=== PATIENT | male | born 1985 ===

== ENCOUNTER 2018-03-11 23:52 | Emergency (ER) | payer MEDICAID ==
[~2018-03-11] VITALS: Ht 180.3 cm; Wt 81.7 kg
[~2018-03-11 23:52] MED LIST: ALBU90OI INH; ALBU90OI61 INH; AMOCLA500; AMOX500 PO; Amoxicillin500 M1 PO; Amoxicillin500 MG PO; BRINTELLIX10 MG; CIPR500 PO; CLIN300 PO; CODGUAEL PO; CYCL10 PO; DOXY100 PO; HYDACE5 PO; HYDCOR2.5C PR; HYDGUAL120 PO; ITCH RELIEF15 GM TP; Mucinex600 MG PO; NAPR550 PO; OXYM.05NI; PENVK500 PO; PERIDEX15 ML MM; PRED10 PO; Pepcid40 MG PO; Prednisone20 MG PO; RXHYDGUAS PO; RXNAPNA550 PO; TOBR.3OPSO OP
[2018-03-12] MEDS ORDERED: Cleocin HCl300 MG PO (00:33)
[2018-03-12] MEDS ORDERED: Ultram50 MG PO (00:33)
== END 2018-03-12 01:29 | disposition home or self-care (01) ==
LOC: ER 23:52
DX: L03.211 Cellulitis of face (principal); K02.9 Dental caries, unspecified; J45.909 Unspecified asthma, uncomplicated; K21.9 Gastro-esophageal reflux disease without esophagitis; F17.200 Nicotine dependence, unspecified, uncomplicated; Z88.5 Allergy status to narcotic agent; Z79.899 Other long term (current) drug therapy
CPT/HCPCS: 99283; J1100

== ENCOUNTER 2018-03-27 20:39 | Emergency (ER) | payer SELFPAY ==
[~2018-03-27] VITALS: Ht 177.8 cm; Wt 119.8 kg
[~2018-03-27 20:39] MED LIST changes: +Cleocin HCl300 MG PO; +Ultram50 MG PO
[2018-03-27 21:17] LABS: BASOPHILS ABSOLUTE AUTO 0.06 K/mm3 (0.00-0.23); BASOPHILS PERCENT AUTO 0 % (0-2); EOSINOPHILS ABSOLUTE AUTO 0.24 K/mm3 (0.00-0.68); EOSINOPHILS PERCENT AUTO 2 % (0-6); Hematocrit 48.6 % (37.0-53.0); Hemoglobin 15.7 g/dL (13.5-17.5); IMMATURE GRAN ABSOLUTE AUTO 0.05 K/mm3 (0.00-0.10); IMMATURE GRAN PERCENT AUTO 0 % (0-1); LYMPHOCYTES ABSOLUTE AUTO 5.31 K/mm3 (0.84-5.20); LYMPHOCYTES PERCENT AUTO 39 % (21-46); MONOCYTES PERCENT AUTO 8 % (4-13); Mean Corpuscular HGB 27.9 pg (26.0-34.0); Mean Corpuscular HGB Conc 32.3 g/dL (31.5-36.5); Mean Corpuscular Volume 87 fL (80-100); Mean Platelet Volume 10.6 fL (9.1-12.4); NEUTROPHILS ABSOLUTE AUTO 7.03 K/mm3 (1.96-9.15); NEUTROPHILS PERCENT AUTO 51 % (41-73); Platelet Count 355 K/mm3 (150-400); RDW Coefficient Variation 13.7 % (11.7-14.2); Red Blood Cell Count 5.62 M/mm3 (4.30-5.90); White Blood Cell Count 13.79 K/mm3 (4.00-11.30)
[2018-03-27 21:35] LABS: Alanine Aminotransfer (ALT/SGP 41 U/L (12-78); Albumin, Blood 3.8 g/dL (3.4-5.0); Albumin/Globulin Ratio 1.1 (0.8-1.8); Alk Phos 78 U/L (50-136); Anion Gap 12 mmol/L (6-16); Aspartate Aminotrans (AST/SGOT 21 U/L (12-37); Bilirubin, Total 0.2 mg/dL (0.1-1.0); Blood Urea Nitrogen 17 mg/dL (8-24); Bun/Creatinine Ratio 21.9 (12.0-20.0); CO2, Blood 26 mmol/L (21-32); Calcium, Blood 8.5 mg/dL (8.5-10.1); Chloride, Blood 103 mmol/L (98-108); Creatinine, Blood 0.78 mg/dL (0.60-1.20); Ethanol (Alcohol), Blood, Med <3 mg/dL; Globulin, Blood 3.6 g/dL (2.2-4.0); Glomerular Filtration Rate >60 (60-); Glucose, Blood 112 mg/dL (70-99); Potassium, Blood 3.7 mmol/L (3.5-5.5); Sodium, Blood 141 mmol/L (136-145); Total Protein, Blood 7.4 g/dL (6.4-8.2)
[2018-03-27] MEDS ORDERED: Ultram50 MG PO (23:05)
== END 2018-03-27 23:19 | disposition home or self-care (01) ==
LOC: ER 20:39
PROVIDERS: Emergency Medicine
DX: S06.0X9A Concussion with loss of consciousness of unspecified duration, initial encounter (principal); S00.83XA Contusion of other part of head, initial encounter; M54.6 Pain in thoracic spine; M54.2 Cervicalgia; V49.9XXA Car occupant (driver) (passenger) injured in unspecified traffic accident, initial encounter; J45.909 Unspecified asthma, uncomplicated; K21.9 Gastro-esophageal reflux disease without esophagitis; F17.200 Nicotine dependence, unspecified, uncomplicated; Z88.5 Allergy status to narcotic agent
CPT/HCPCS: 36415; 70450; 72125; 80053; 85025; 96374; 96375; 99285-25; G0480; J1170; J2060; J2405; J3010

== ENCOUNTER 2018-10-11 18:09 | Emergency (ER) | payer OTHER ==
[~2018-10-11] VITALS: Ht 175.3 cm; Wt 109.8 kg
[2018-10-11] MEDS ORDERED: Prednisone20 MG PO (19:05)
[2018-10-11] MEDS ORDERED: ZYRTEC10 M3 PO (19:05)
== END 2018-10-11 19:18 | disposition home or self-care (01) ==
LOC: ER 18:09
DX: L23.7 Allergic contact dermatitis due to plants, except food (principal); Z88.5 Allergy status to narcotic agent; F17.200 Nicotine dependence, unspecified, uncomplicated
CPT/HCPCS: 99283; J1100; Q0163

== ENCOUNTER 2019-05-18 16:25 | Emergency (ER) | payer OTHER ==
[~2019-05-18] VITALS: Ht 175.3 cm; Wt 90.7 kg
[~2019-05-18 16:25] MED LIST changes: +ZYRTEC10 M3 PO
[2019-05-18] MEDS ORDERED: PENVK500 PO (17:17)
== END 2019-05-18 17:26 | disposition home or self-care (01) ==
LOC: ER 16:25
DX: K04.7 Periapical abscess without sinus (principal); K02.9 Dental caries, unspecified; J45.909 Unspecified asthma, uncomplicated; K21.9 Gastro-esophageal reflux disease without esophagitis; F17.210 Nicotine dependence, cigarettes, uncomplicated; Z88.5 Allergy status to narcotic agent
CPT/HCPCS: 99283

== ENCOUNTER 2020-02-25 07:17 | Emergency (ER) | payer OTHER ==
[~2020-02-25] VITALS: Ht 175.3 cm; Wt 127.0 kg
[~2020-02-25 07:17] MED LIST changes: +Bactrim Ds Tab1 EACH PO; +HIBICLENS120 ML EXT; +IBU600 M1 PO
[2020-02-25] MEDS ORDERED: Amoxicillin500 MG PO (08:39)
== END 2020-02-25 09:46 | disposition home or self-care (01) ==
LOC: ER 07:17
DX: K04.7 Periapical abscess without sinus (principal); F17.210 Nicotine dependence, cigarettes, uncomplicated; Z88.5 Allergy status to narcotic agent
CPT/HCPCS: 99282

== ENCOUNTER 2021-01-19 13:11 | Emergency (ER) | payer OTHER ==
[~2021-01-19] VITALS: Ht 172.7 cm; Wt 136.1 kg
[2021-01-19] MEDS ORDERED: CYCL10 PO (13:47)
== END 2021-01-19 13:56 | disposition home or self-care (01) ==
LOC: ER 13:11
DX: S16.1XXA Strain of muscle, fascia and tendon at neck level, initial encounter (principal); J45.909 Unspecified asthma, uncomplicated; F17.210 Nicotine dependence, cigarettes, uncomplicated; Z88.6 Allergy status to analgesic agent; X58.XXXA Exposure to other specified factors, initial encounter
CPT/HCPCS: 99283; A9270

== ENCOUNTER 2022-10-12 11:13 | Emergency (ER) | payer OTHER ==
[~2022-10-12] VITALS: Ht 175.3 cm; Wt 117.9 kg
[2022-10-12 11:15] VITALS: BP 144/96
[2022-10-12] MEDS ORDERED: NAPROXEN250 M1 PO (12:11)
== END 2022-10-12 12:24 | disposition home or self-care (01) ==
LOC: ER 11:13
DX: M25.512 Pain in left shoulder (principal); J45.909 Unspecified asthma, uncomplicated; F17.210 Nicotine dependence, cigarettes, uncomplicated; Z88.5 Allergy status to narcotic agent; W18.30XA Fall on same level, unspecified, initial encounter
CPT/HCPCS: 73030; 96372; 99283-25; J1885

== ENCOUNTER 2023-02-23 11:13 | Emergency (ER) | payer OTHER ==
[~2023-02-23] VITALS: Ht 172.7 cm; Wt 126.1 kg
[~2023-02-23 11:13] MED LIST changes: +NAPROXEN250 M1 PO
[2023-02-23 11:55] LABS: BASOPHILS ABSOLUTE AUTO 0.04 K/mm3 (0.00-0.23); BASOPHILS PERCENT AUTO 1 % (0-2); EOSINOPHILS ABSOLUTE AUTO 0.12 K/mm3 (0.00-0.68); EOSINOPHILS PERCENT AUTO 1 % (0-6); Hematocrit 45.4 % (37.0-53.0); Hemoglobin 15.3 g/dL (13.5-17.5); IMMATURE GRAN ABSOLUTE AUTO 0.03 K/mm3 (0.00-0.10); IMMATURE GRAN PERCENT AUTO 0 % (0-1); LYMPHOCYTES ABSOLUTE AUTO 3.06 K/mm3 (0.84-5.20); LYMPHOCYTES PERCENT AUTO 37 % (21-46); MONOCYTES ABSOLUTE AUTO 0.55 K/mm3 (0.16-1.47); MONOCYTES PERCENT AUTO 7 % (4-13); Mean Corpuscular HGB 28.4 pg (26.0-34.0); Mean Corpuscular HGB Conc 33.7 g/dL (31.5-36.5); Mean Corpuscular Volume 84 fL (80-100); NEUTROPHILS ABSOLUTE AUTO 4.55 K/mm3 (1.96-9.15); NEUTROPHILS PERCENT AUTO 55 % (41-73); RDW Standard Deviation 39.8 fL (35.1-46.3); Red Blood Cell Count 5.39 M/mm3 (4.30-5.90); White Blood Cell Count 8.35 K/mm3 (4.00-11.30)
[2023-02-23 12:02] LABS: Mean Platelet Volume 12.1 fL (9.1-12.4); Platelet Count 286 K/mm3 (150-400)
[2023-02-23 12:21] LABS: Albumin, Blood 3.8 g/dL (3.4-5.0); Bilirubin, Total 0.4 mg/dL (0.1-1.0); Bun/Creatinine Ratio 21.6 (12.0-20.0); Calcium, Blood 8.9 mg/dL (8.5-10.1); Creatinine, Blood 0.79 mg/dL (0.60-1.20); Globulin, Blood 3.8 g/dL (2.2-4.0); Potassium, Blood 5.2 mmol/L (3.5-5.5); Total Protein, Blood 7.6 g/dL (6.4-8.2)
[2023-02-23 14:07] LABS: Source, Urine Clean Catch
[2023-02-23 14:16] LABS: Appearance, Urine Clear (Clear); Bilirubin, Urine Neg (Neg); Blood, Urine Neg (Neg); Color, Urine Yellow (P-Yellow); Glucose Qualitative, Urine Neg (Neg); Ketones, Urine Neg (Neg); Leukocyte Esterase, Urine Neg (Neg); Nitrite, Urine Neg (Neg); Protein, Urine Neg (Neg); Specific Gravity, Urine 1.015 (1.003-1.022); Urobilinogen, Urine NORM (Normal)
[2023-02-23 15:00] VITALS: BP 120/81
[2023-02-23] MEDS ORDERED: NAPR500 PO (15:04)
[2023-02-23] MEDS ORDERED: TIZA4 PO (15:04)
[2023-02-23] MEDS ORDERED: DIAZ2 PO (15:26)
== END 2023-02-23 15:43 | disposition home or self-care (01) ==
LOC: ER 11:13
PROVIDERS: Physician Assistant
DX: M54.6 Pain in thoracic spine (principal); K21.9 Gastro-esophageal reflux disease without esophagitis; J45.909 Unspecified asthma, uncomplicated; F17.210 Nicotine dependence, cigarettes, uncomplicated; Z79.1 Long term (current) use of non-steroidal anti-inflammatories (NSAID); Z88.5 Allergy status to narcotic agent
CPT/HCPCS: 36415; 71046; 80053; 81003; 83690; 84484; 85025; 93005; 93010; 96372; 99284-25; A9270; J1885

== ENCOUNTER 2024-05-28 14:58 | Emergency (ER) | payer OTHER ==
[~2024-05-28] VITALS: Ht 175.3 cm; Wt 142.9 kg
[~2024-05-28 14:58] MED LIST changes: +AMOCLA875 PO; +DIAZ2 PO; +NAPR500 PO; +ONDA4 PO; +Percocet 5-3251 EACH PO; +TIZA4 PO
[2024-05-28 15:37] VITALS: BP 142/89
[2024-05-28] MEDS ORDERED: Lidocaine 4% 1 Patch TOP ONE (15:45)
[2024-05-28] MEDS ORDERED: Acetaminophen 500 MG Tab PO ONE (15:45)
[2024-05-28 16:00] LABS: BASOPHILS ABSOLUTE AUTO 0.04 K/mm3 (0.00-0.23); BASOPHILS PERCENT AUTO 1 % (0-2); EOSINOPHILS PERCENT AUTO 1 % (0-6); Hematocrit 43.6 % (37.0-53.0); Hemoglobin 14.6 g/dL (13.5-17.5); IMMATURE GRAN ABSOLUTE AUTO 0.02 K/mm3 (0.00-0.10); IMMATURE GRAN PERCENT AUTO 0 % (0-1); LYMPHOCYTES ABSOLUTE AUTO 3.02 K/mm3 (0.84-5.20); LYMPHOCYTES PERCENT AUTO 36 % (21-46); MONOCYTES ABSOLUTE AUTO 0.66 K/mm3 (0.16-1.47); MONOCYTES PERCENT AUTO 8 % (4-13); Mean Corpuscular HGB 28.7 pg (26.0-34.0); Mean Corpuscular HGB Conc 33.5 g/dL (31.5-36.5); Mean Corpuscular Volume 86 fL (80-100); Mean Platelet Volume 10.7 fL (9.1-12.4); NEUTROPHILS ABSOLUTE AUTO 4.64 K/mm3 (1.96-9.15); NEUTROPHILS PERCENT AUTO 55 % (41-73); Platelet Count 259 K/mm3 (150-400); RDW Coefficient Variation 13.7 % (11.7-14.2); RDW Standard Deviation 42.9 fL (35.1-46.3); Red Blood Cell Count 5.09 M/mm3 (4.30-5.90); White Blood Cell Count 8.48 K/mm3 (4.00-11.30)
[2024-05-28 16:16] LABS: Albumin, Blood 3.6 g/dL (3.4-5.0); Albumin/Globulin Ratio 1.1 (0.8-1.8); Bilirubin, Total 0.2 mg/dL (0.1-1.0); Bun/Creatinine Ratio 25.3 (12.0-20.0); Calcium, Blood 8.5 mg/dL (8.5-10.1); Creatinine, Blood 0.67 mg/dL (0.60-1.20); Globulin, Blood 3.4 g/dL (2.2-4.0); Potassium, Blood 3.8 mmol/L (3.5-5.5)
[2024-05-28 18:06] LABS: Influenza A, PCR NEGATIVE (NEGATIVE); Influenza B, PCR NEGATIVE (NEGATIVE); Resp Syncytial Virus, PCR NEGATIVE (NEGATIVE); SARS-Cov-2 (COVID-19) PCR, MMC NEGATIVE (NEGATIVE)
[2024-05-28] MEDS ORDERED: LIDO700A20 TOP (18:20)
== END 2024-05-28 18:35 | disposition home or self-care (01) ==
LOC: ER 14:58
PROVIDERS: Student in an Organized Health Care Education/Training Program
DX: R07.9 Chest pain, unspecified (principal); Z88.5 Allergy status to narcotic agent; Z79.2 Long term (current) use of antibiotics; Z79.899 Other long term (current) drug therapy; J45.909 Unspecified asthma, uncomplicated; F17.210 Nicotine dependence, cigarettes, uncomplicated
CPT/HCPCS: 0241U; 71046; 80053; 83690; 84484; 85025; 93005; 93010; 99285-25; A9270

== ENCOUNTER 2024-06-15 07:48 | Emergency (ER) | payer OTHER ==
[~2024-06-15] VITALS: Ht 175.3 cm; Wt 140.2 kg
[~2024-06-15 07:48] MED LIST changes: +LIDO700A20 TOP
[2024-06-15] MEDS ORDERED: NS 1,000 ML IV SCH (08:25)
[2024-06-15] MEDS ORDERED: Ketorolac Tromethamine 15mg Vial IV ONE (08:25)
[2024-06-15] MEDS ORDERED: Ondansetron HCl 2 MG / ML 2ML Vial IV ONE (08:25)
[2024-06-15 08:33] LABS: BASOPHILS ABSOLUTE AUTO 0.03 K/mm3 (0.00-0.23); BASOPHILS PERCENT AUTO 0 % (0-2); EOSINOPHILS ABSOLUTE AUTO 0.13 K/mm3 (0.00-0.68); EOSINOPHILS PERCENT AUTO 1 % (0-6); Hematocrit 43.9 % (37.0-53.0); Hemoglobin 15.3 g/dL (13.5-17.5); IMMATURE GRAN ABSOLUTE AUTO 0.03 K/mm3 (0.00-0.10); IMMATURE GRAN PERCENT AUTO 0 % (0-1); LYMPHOCYTES ABSOLUTE AUTO 2.16 K/mm3 (0.84-5.20); LYMPHOCYTES PERCENT AUTO 23 % (21-46); MONOCYTES ABSOLUTE AUTO 0.63 K/mm3 (0.16-1.47); MONOCYTES PERCENT AUTO 7 % (4-13); Mean Corpuscular HGB 29.1 pg (26.0-34.0); Mean Corpuscular HGB Conc 34.9 g/dL (31.5-36.5); Mean Corpuscular Volume 84 fL (80-100); NEUTROPHILS ABSOLUTE AUTO 6.61 K/mm3 (1.96-9.15); NEUTROPHILS PERCENT AUTO 69 % (41-73); Platelet Count 260 K/mm3 (150-400); RDW Coefficient Variation 13.5 % (11.7-14.2); RDW Standard Deviation 41.1 fL (35.1-46.3); Red Blood Cell Count 5.25 M/mm3 (4.30-5.90); White Blood Cell Count 9.59 K/mm3 (4.00-11.30)
[2024-06-15 08:52] LABS: Albumin, Blood 3.4 g/dL (3.4-5.0); Bilirubin, Total 0.6 mg/dL (0.1-1.0); Bun/Creatinine Ratio 23.4 (12.0-20.0); Calcium, Blood 8.3 mg/dL (8.5-10.1); Creatinine, Blood 0.64 mg/dL (0.60-1.20); Globulin, Blood 3.5 g/dL (2.2-4.0); Total Protein, Blood 6.9 g/dL (6.4-8.2)
[2024-06-15 09:14] LABS: Source, Urine Clean Catch
[2024-06-15] MEDS ORDERED: MetroNIDAZOLE 500 MG Tab PO ONE (09:20)
[2024-06-15 09:21] LABS: Appearance, Urine Clear (Clear); Bilirubin, Urine Neg (Neg); Blood, Urine Neg (Neg); Color, Urine Yellow (P-Yellow); Glucose Qualitative, Urine Neg (Neg); Ketones, Urine Neg (Neg); Leukocyte Esterase, Urine 1+ (Neg); Nitrite, Urine Neg (Neg); Protein, Urine Neg (Neg); Urobilinogen, Urine NORM (Normal); pH, Urine 6.5 (5.0-8.0)
[2024-06-15] MEDS ORDERED: Ciprofloxacin 500 MG Tab PO ONE (09:25)
[2024-06-15 09:46] LABS: Bacteria Few /hpf; Red Blood Cells, Urine Not Seen /hpf (0-2); Squamous Epithelial Cells Not Seen /hpf (Few)
[2024-06-15 09:59] VITALS: BP 133/92
[2024-06-15] MEDS ORDERED: OxyCODONE 5 mg/Acetamin 325 mg TABLET PO ONE (10:05)
[2024-06-15] MEDS ORDERED: METR500 PO (10:08)
[2024-06-15] MEDS ORDERED: Percocet 5-3251 EACH PO (10:08)
[2024-06-15] MEDS ORDERED: ONDA4ODT MM (10:08)
[2024-06-15] MEDS ORDERED: CIPR500 PO (10:08)
== END 2024-06-15 10:00 | disposition home or self-care (01) ==
LOC: ER 07:48
PROVIDERS: Student in an Organized Health Care Education/Training Program
DX: K57.32 Diverticulitis of large intestine without perforation or abscess without bleeding (principal); J45.909 Unspecified asthma, uncomplicated; K21.9 Gastro-esophageal reflux disease without esophagitis; F17.200 Nicotine dependence, unspecified, uncomplicated; Z88.5 Allergy status to narcotic agent; Z79.899 Other long term (current) drug therapy
CPT/HCPCS: 74177; 80053; 81001; 83690; 85025; 87086; 96374-59; 96375; 99284-25; A9270; J1885; J2405; J7030; Q9967

== ENCOUNTER 2024-12-16 10:50 | Emergency (ER) | payer OTHER ==
[~2024-12-16] VITALS: Ht 175.3 cm; Wt 138.8 kg
[~2024-12-16 10:50] MED LIST changes: +IBUP800 PO; +METR500 PO; +MIRALAX17 GM PO; +ONDA4ODT MM; +OXAYDO5 M1 PO
[2024-12-16] MEDS ORDERED: Morphine Sulfate 4 MG/1 ML Injection IV ONE (11:40)
[2024-12-16 11:51] LABS: BASOPHILS ABSOLUTE AUTO 0.04 K/mm3 (0.00-0.23); BASOPHILS PERCENT AUTO 0 % (0-2); EOSINOPHILS ABSOLUTE AUTO 0.08 K/mm3 (0.00-0.68); EOSINOPHILS PERCENT AUTO 1 % (0-6); Hematocrit 46.1 % (37.0-53.0); Hemoglobin 15.6 g/dL (13.5-17.5); IMMATURE GRAN ABSOLUTE AUTO 0.02 K/mm3 (0.00-0.10); IMMATURE GRAN PERCENT AUTO 0 % (0-1); LYMPHOCYTES ABSOLUTE AUTO 2.74 K/mm3 (0.84-5.20); LYMPHOCYTES PERCENT AUTO 29 % (21-46); MONOCYTES ABSOLUTE AUTO 0.51 K/mm3 (0.16-1.47); MONOCYTES PERCENT AUTO 6 % (4-13); Mean Corpuscular HGB Conc 33.8 g/dL (31.5-36.5); Mean Corpuscular Volume 86 fL (80-100); NEUTROPHILS ABSOLUTE AUTO 5.92 K/mm3 (1.96-9.15); NEUTROPHILS PERCENT AUTO 64 % (41-73); NRBC ABSOLUTE 0.00 K/mm3 (0.00-0.02); NRBC Auto 0.0 /100 WBC (0.0-0.2); Platelet Count 275 K/mm3 (150-400); RDW Coefficient Variation 13.7 % (11.7-14.2); RDW Standard Deviation 42.9 fL (35.1-46.3)
[2024-12-16 12:31] LABS: Alanine Aminotransfer (ALT/SGP 57.0 U/L (12-78); Albumin, Blood 3.9 g/dL (3.4-5.0); Albumin/Globulin Ratio 1.1 (0.8-1.8); Anion Gap 9.0 mmol/L (3-11); Aspartate Aminotrans (AST/SGOT 33.0 U/L (12-37); Bilirubin, Total 0.5 mg/dL (0.1-1.0); Blood Urea Nitrogen 12.0 mg/dL (8-24); CO2, Blood 28.0 mmol/L (21-32); Calcium, Blood 8.9 mg/dL (8.5-10.1); Chloride, Blood 103.0 mmol/L (98-108); Creatinine, Blood 0.68 mg/dL (0.60-1.20); Globulin, Blood 3.4 g/dL (2.2-4.0); Glucose, Blood 109.0 mg/dL (70-99); Potassium, Blood 4.0 mmol/L (3.5-5.5); Sodium, Blood 136.0 mmol/L (136-145); Total Protein, Blood 7.3 g/dL (6.4-8.2)
[2024-12-16] MEDS ORDERED: HYDROmorphone HCl/Pf 1MG SYR IV ONE ×2 (12:40→14:50)
[2024-12-16 15:00] VITALS: BP 132/82
== END 2024-12-16 16:33 | disposition home or self-care (01) ==
LOC: ER 10:50
PROVIDERS: Student in an Organized Health Care Education/Training Program
DX: D73.5 Infarction of spleen (principal); K21.9 Gastro-esophageal reflux disease without esophagitis; J45.909 Unspecified asthma, uncomplicated; Z79.899 Other long term (current) drug therapy; F17.210 Nicotine dependence, cigarettes, uncomplicated
CPT/HCPCS: 71046; 74174; 80053; 84484; 85025; 93005; 93010; 96374; 96375; 96376; 99284-25; J1171; J2270; Q9967

== ENCOUNTER 2024-12-23 17:37 | Emergency (ER) | payer OTHER ==
[~2024-12-23] VITALS: Ht 175.3 cm; Wt 139.7 kg
[2024-12-23 18:30] LABS: Source, Urine Clean Catch
[2024-12-23 18:34] LABS: Bilirubin, Urine Neg (Neg); Color, Urine Yellow (P-Yellow); Glucose Qualitative, Urine Neg (Neg); Ketones, Urine Neg (Neg); Leukocyte Esterase, Urine Neg (Neg); Protein, Urine 1+ (Neg); Specific Gravity, Urine 1.025 (1.003-1.022); Urobilinogen, Urine NORM (Normal)
[2024-12-23 18:42] LABS: BASOPHILS ABSOLUTE AUTO 0.05 K/mm3 (0.00-0.23); BASOPHILS PERCENT AUTO 1 % (0-2); EOSINOPHILS ABSOLUTE AUTO 0.14 K/mm3 (0.00-0.68); EOSINOPHILS PERCENT AUTO 2 % (0-6); Hematocrit 43.2 % (37.0-53.0); Hemoglobin 14.9 g/dL (13.5-17.5); IMMATURE GRAN ABSOLUTE AUTO 0.07 K/mm3 (0.00-0.10); IMMATURE GRAN PERCENT AUTO 1 % (0-1); LYMPHOCYTES ABSOLUTE AUTO 2.79 K/mm3 (0.84-5.20); LYMPHOCYTES PERCENT AUTO 35 % (21-46); MONOCYTES ABSOLUTE AUTO 0.73 K/mm3 (0.16-1.47); MONOCYTES PERCENT AUTO 9 % (4-13); Mean Corpuscular HGB Conc 34.5 g/dL (31.5-36.5); Mean Corpuscular Volume 84 fL (80-100); NEUTROPHILS ABSOLUTE AUTO 4.24 K/mm3 (1.96-9.15); NEUTROPHILS PERCENT AUTO 53 % (41-73); NRBC ABSOLUTE 0.00 K/mm3 (0.00-0.02); NRBC Auto 0.0 /100 WBC (0.0-0.2); RDW Coefficient Variation 13.5 % (11.7-14.2); RDW Standard Deviation 41.7 fL (35.1-46.3)
[2024-12-23 18:43] LABS: Alanine Aminotransfer (ALT/SGP 49.0 U/L (12-78); Albumin, Blood 3.7 g/dL (3.4-5.0); Albumin/Globulin Ratio 1.2 (0.8-1.8); Anion Gap 8.0 mmol/L (3-11); Aspartate Aminotrans (AST/SGOT 28.0 U/L (12-37); Bilirubin, Total 0.3 mg/dL (0.1-1.0); Blood Urea Nitrogen 16.0 mg/dL (8-24); CO2, Blood 28.0 mmol/L (21-32); Calcium, Blood 8.9 mg/dL (8.5-10.1); Chloride, Blood 104.0 mmol/L (98-108); Creatinine, Blood 0.78 mg/dL (0.60-1.20); Globulin, Blood 3.2 g/dL (2.2-4.0); Glucose, Blood 118.0 mg/dL (70-99); Potassium, Blood 4.0 mmol/L (3.5-5.5); Sodium, Blood 136.0 mmol/L (136-145); Total Protein, Blood 6.9 g/dL (6.4-8.2)
[2024-12-23] MEDS ORDERED: NS 1,000 ML IV SCH (19:30)
[2024-12-23] MEDS ORDERED: Ondansetron HCl 2 MG / ML 2ML Vial IV ONE (21:35)
[2024-12-23 22:30] VITALS: BP 136/81
[2024-12-23] MEDS ORDERED: ONDA4ODT MM (23:08)
[2024-12-23] MEDS ORDERED: ELIQUIS5 M2 PO (23:08)
== END 2024-12-23 23:26 | disposition home or self-care (01) ==
LOC: ER 17:37
PROVIDERS: Student in an Organized Health Care Education/Training Program
DX: I26.99 Other pulmonary embolism without acute cor pulmonale (principal); E88.89 Other specified metabolic disorders; F17.210 Nicotine dependence, cigarettes, uncomplicated; J45.909 Unspecified asthma, uncomplicated; K21.9 Gastro-esophageal reflux disease without esophagitis
CPT/HCPCS: 71046; 71275; 74174; 80053; 83605; 83690; 83880; 84484; 85025; 93005; 93010; 96361; 96374; 99284-25; A9270; J2405; J7030; Q9967